=== PATIENT | male | born 1990 | race African-American/Black ===

== ENCOUNTER → 2024-05-28 | Outpatient (CLI) | payer MEDICAID, SELFPAY | END | disposition home or self-care (01) | PROVIDERS: PCP Internal Medicine; Referring Provider Internal Medicine; Visit Provider Student in an Organized Health Care Education/Training Program | DX: I96 Gangrene, not elsewhere classified (principal); L89.324 Pressure ulcer of left buttock, stage 4; L89.154 Pressure ulcer of sacral region, stage 4; L89.613 Pressure ulcer of right heel, stage 3; R60.0 Localized edema; G82.20 Paraplegia, unspecified; B99.8 Other infectious disease | CPT/HCPCS: 11042; 11045 ×6 ==

== ENCOUNTER → 2024-06-30 | Outpatient (CLI) | payer MEDICAID, SELFPAY | END | disposition home or self-care (01) | LOC: SWHD 13:36 | PROVIDERS: PCP Internal Medicine; Referring Provider Internal Medicine; Visit Provider Student in an Organized Health Care Education/Training Program | DX: I96 Gangrene, not elsewhere classified (principal); L89.324 Pressure ulcer of left buttock, stage 4; L89.154 Pressure ulcer of sacral region, stage 4; L89.613 Pressure ulcer of right heel, stage 3; R60.0 Localized edema; G82.20 Paraplegia, unspecified; B99.8 Other infectious disease | CPT/HCPCS: 97597; 11044; A9270 ==

== ENCOUNTER → 2024-07-30 | Outpatient (CLI) | payer MEDICAID, SELFPAY | END | disposition home or self-care (01) | LOC: SWHD 15:09 | PROVIDERS: PCP Internal Medicine; Referring Provider Internal Medicine; Visit Provider Student in an Organized Health Care Education/Training Program | DX: I96 Gangrene, not elsewhere classified (principal); L89.324 Pressure ulcer of left buttock, stage 4; L89.154 Pressure ulcer of sacral region, stage 4; L89.613 Pressure ulcer of right heel, stage 3; R60.0 Localized edema; G82.20 Paraplegia, unspecified; B99.8 Other infectious disease | CPT/HCPCS: 97597; 97598 ×4; A9270 ==

== ENCOUNTER → 2024-08-13 | Outpatient (CLI) | payer MEDICAID, SELFPAY | END | disposition home or self-care (01) | LOC: SWHD 14:38 | PROVIDERS: PCP Internal Medicine; Referring Provider Internal Medicine; Visit Provider Student in an Organized Health Care Education/Training Program | DX: I96 Gangrene, not elsewhere classified (principal); L89.324 Pressure ulcer of left buttock, stage 4; L89.154 Pressure ulcer of sacral region, stage 4; L89.613 Pressure ulcer of right heel, stage 3; R60.0 Localized edema; G82.20 Paraplegia, unspecified; B99.8 Other infectious disease | CPT/HCPCS: 97597 ==

== ENCOUNTER → 2024-08-27 | Outpatient (CLI) | payer MEDICAID, SELFPAY | END | disposition home or self-care (01) | LOC: SWHD 14:08 | PROVIDERS: PCP Internal Medicine; Referring Provider Internal Medicine; Visit Provider Student in an Organized Health Care Education/Training Program | DX: I96 Gangrene, not elsewhere classified (principal); L89.324 Pressure ulcer of left buttock, stage 4; L89.154 Pressure ulcer of sacral region, stage 4; L89.613 Pressure ulcer of right heel, stage 3; R60.0 Localized edema; G82.20 Paraplegia, unspecified; B99.8 Other infectious disease | CPT/HCPCS: 97597; 11042; 11045 ×6 ==